=== PATIENT | male | born 1955 | race Caucasian/White ===

== ENCOUNTER 2018-05-28 09:56 | Day surgery (SDC) | payer BC ==
[2018-05-28] MEDS ORDERED: Sodium Chloride 0.9% 10 ML Syringe IV ONE (09:57)
[2018-05-28] MEDS ORDERED: Dexamethasone 4 MG/ML SDV IV ONE (09:57)
[2018-05-28] MEDS ORDERED: Midazolam 1 MG/ML 2 ML SDV IV ONE (09:57)
[2018-05-28] MEDS ORDERED: Proparacaine 0.5% Ophth Soln 15 ML Bottle EYERT ONE (10:00)
[2018-05-28] MEDS ORDERED: Cataract Ophth Solution EYERT ONE (10:00)
[2018-05-28] MEDS ORDERED: Moxifloxacin 0.5% Ophth Soln 3 ML Bottle EYERT ONE (10:00)
[2018-05-28] MEDS ORDERED: Acetaminophen 325 MG Tab PO PRN (10:00)
[2018-05-28] MEDS ORDERED: Ondansetron 4 MG/2 ML SDV IVPUSH PRN (10:00)
[2018-05-28] MEDS ORDERED: Sodium Chloride 0.9% 10 ML Syringe FLUSH PRN (10:00)
[2018-05-28] MEDS ORDERED: Timolol Maleate 0.5% Ophth Soln 5 ML Bottle EYERT ONE (10:00)
[2018-05-28] MEDS ORDERED: Phenylephrine 10% Ophth Soln 5 ML Bot EYERT PRN (10:00)
[2018-05-28] MEDS ORDERED: Povidone-Iodine 5% Sterile Ophth Soln 30 ML Bottle EYERT ONE ×2 (10:00→11:17)
[2018-05-28] MEDS ORDERED: Phenylephrine 10% Ophth Soln 5 ML Bot EYERT ONE (10:00)
[2018-05-28] MEDS ORDERED: Tetracaine HCl/PF 0.5% 4 ML Bottle EYERT ONE (11:17)
[2018-05-28] MEDS ORDERED: Apraclonidine 0.5% Ophth Soln 5 ML Bot EYERT ONE (11:17)
[2018-05-28] MEDS ORDERED: Vancomycin 500 MG SDV EYERT ONE (11:18)
[2018-05-28] MEDS ORDERED: Balanced Salt Solution Ophth Irrig 500 ML Bottle IOCULAR ONE (11:18)
[2018-05-28] MEDS ORDERED: Dexamethasone/Neomycin/Polymyxin B Ophth Oint 3.5 GM Tube EYERT ONE (11:18)
[2018-05-28] MEDS ORDERED: Diclofenac Sodium 0.1% Ophth Soln 5 ML Bottle EYERT ONE (11:18)
[2018-05-28] MEDS ORDERED: Chondroitin Sulfate/Hyaluronate Sodium Ophth Inj 0.75 ML Syringe EYERT ONE (11:19)
[2018-05-28] MEDS ORDERED: Lidocaine 1% 30 ML SDV ONE (11:19)
--- NOTE | 2018-05-28 11:43 | OR ---
DATE: 05/28/2018 PREOPERATIVE DIAGNOSIS: Visually significant mixed cataract, right eye. POSTOPERATIVE DIAGNOSIS: Visually significant mixed cataract, right eye. PROCEDURE: Extracapsular cataract extraction with intraocular lens implant, right eye. ANESTHESIA: Topical/local MAC. COMPLICATIONS: None. INDICATION: Mr. Khan was seen in the clinic. He is unhappy with his vision, noting a slow progressive change. He has difficulty reading, difficulty with bright lights and glare. His examination reveals mixed nuclear and central cortical cataract. I explained options; I offered surgery; and I explained risks including the potential for infection, retinal detachment, loss of vision, and need for additional surgery amongst others. We discussed implant options. He has requested surgery with a toric implant. He understands that he may require glasses for some activities. OPERATIVE DESCRIPTION: After informed consent was obtained and the risks, benefits, and alternatives were explained, the patient was brought to the operative suite and topical anesthesia was administered. The patient was then prepped and draped in the sterile fashion, and attention was placed on the right eye. A sterile lid speculum was placed into the right eye to allow operative exposure. A full-thickness paracentesis was made in the temporal portion of the operative eye. Preservative-free lidocaine 0.1 mL was injected into the anterior chamber followed by viscoelastic. A full-thickness corneal incision was then made into the anterior chamber. A bent needle cystotome was used to create a small kierra in the anterior capsule. The capsulorrhexis forceps was then used to create a 360-degree curvilinear capsulorrhexis. The nucleus was then removed using a phacoemulsification handpiece, and the remaining cortical material was then removed with irrigation and aspiration handpiece. Following removal of the cortical material, the capsular bag was then inspected and noted to be free of any holes or tears. Viscoelastic was then injected into the capsular bag, and the intraocular lens was inserted into the capsular bag. The implant was oriented to correspond with preoperative corneal dominguez made with the patient in the upright position. The viscoelastic material was then removed from both the anterior and posterior chambers and from behind the IOL. The lens and capsular bag were then reinspected. The IOL was well centered and the capsular bag intact. The wound and paracentesis sites were inspected and hydrated with balanced saline solution. Both were found to be self-sealing. The intraocular pressure was assessed digitally and found to be within normal range. A good red reflex was noted at the completion of the procedure. No complications occurred during the operation. At the completion of the procedure, Maxitrol, Voltaren, and Iopidine drops were placed into the operative eye. A sterile eye shield was placed over the operative eye, and the patient was transported to the postoperative recovery area having tolerated the procedure well. Postoperative instructions were given along with a postoperative appointment. The patient was advised to call with any questions or concerns. [facility] /[id number]
== END 2018-05-28 12:30 | disposition home or self-care (01) ==
LOC: DL.SDS 09:56
PROVIDERS: ATTEND Ophthalmology
DX: E11.36 Type 2 diabetes mellitus with diabetic cataract (principal); H25.811 Combined forms of age-related cataract, right eye; E66.01 Morbid (severe) obesity due to excess calories; Z68.42 Body mass index [BMI] 45.0-49.9, adult; E78.5 Hyperlipidemia, unspecified; G47.30 Sleep apnea, unspecified; Z99.89 Dependence on other enabling machines and devices; Z79.82 Long term (current) use of aspirin; Z79.899 Other long term (current) drug therapy
CPT/HCPCS: 66984; A9270; J1100; J2250; J3370; V2787

== ENCOUNTER 2023-04-30 06:27 | Day surgery (SDC) | payer MEDICARE, OTHER ==
[2023-04-30] MEDS ORDERED: Dextrose 5%-0.45% NaCl 1,000 ML IV SCH (06:30)
[2023-04-30] MEDS ORDERED: Midazolam 1 MG/ML 2 ML SDV ONE (07:00)
[2023-04-30] MEDS ORDERED: fentaNYL 100 MCG/2 ML SDV ONE (07:00)
[2023-04-30] MEDS ORDERED: Midazolam 1 MG/ML 2 ML SDV IV ONE ×7 (07:00→07:17)
[2023-04-30] MEDS ORDERED: fentaNYL 100 MCG/2 ML SDV IV ONE ×3 (07:00→07:09)
== END 2023-04-30 09:30 | disposition home or self-care (01) ==
LOC: DL.ENDO 06:27
PROVIDERS: ATTEND Internal Medicine Gastroenterology
DX: Z12.11 Encounter for screening for malignant neoplasm of colon (principal); K51.40 Inflammatory polyps of colon without complications; E11.9 Type 2 diabetes mellitus without complications; E66.9 Obesity, unspecified; Z68.42 Body mass index [BMI] 45.0-49.9, adult
CPT/HCPCS: J2250; J3010; J7042

== ENCOUNTER 2024-02-17 14:34 | Inpatient (IN) | payer MEDICARE, OTHER ==
[2024-02-17 15:27] LABS: BASOPHILS PERCENT AUTO 0.4 % (0.0-1.0); EOSINOPHILS PERCENT AUTO 3.3 % (1.0-3.0); HEMATOCRIT 52.8 % (40.0-54.0); HEMOGLOBIN 15.5 g/dL (14.0-18.0); LYMPHOCYTES PERCENT AUTO 16.4 % (20.5-50.1); MEAN CORPUSCULAR HEMOGLOBIN 28.1 pg (27.0-34.0); MEAN CORPUSCULAR HGB CONC 29.4 g/dL (33.0-35.0); MEAN CORPUSCULAR VOLUME 95.8 fL (80-100); MONOCYTES PERCENT AUTO 7.3 % (2-8); NEUTROPHILS PERCENT AUTO 72.6 % (42.2-75.2); PLATELET COUNT,PLT 247 10^3/uL (150-450); RED BLOOD CELL COUNT 5.51 10^6/uL (4.6-6.2); WHITE BLOOD CELL COUNT,WBC 8.4 10^3/uL (5.0-10.0)
[2024-02-17 15:47] LABS: ALBUMIN 2.9 g/dL (3.4-5.0); ANION GAP 5.1 mEq/L (7-13); BILIRUBIN TOTAL 0.6 mg/dL (0.2-1.0); CALCIUM 8.3 mg/dL (8.5-10.1); CREATININE 0.93 mg/dL (0.70-1.30); EST CRCL DRUG DOSING (CG) 66.13 mL/min; POTASSIUM,K 4.1 mmol/L (3.5-5.1); PROTEIN TOTAL,TP 6.5 g/dL (6.4-8.2)
[2024-02-17 15:48] LABS: A/G RATIO 0.81
[2024-02-17] MEDS: Furosemide 40 MG/4 ML VIAL IVPUSH ONE (16:12)
[2024-02-17] MEDS ORDERED: Acetaminophen 325 MG Tab PO PRN ×2 (21:23→21:34)
[2024-02-17] MEDS ORDERED: Melatonin 3 MG Tab PO PRN (21:34)
[2024-02-17] MEDS ORDERED: Docusate Sodium 100 MG Cap PO PRN (21:34)
[2024-02-17] MEDS ORDERED: Bisacodyl 5 MG Tab PO PRN (21:34)
[2024-02-17] MEDS ORDERED: Ondansetron 4 MG/2 ML SDV IVPUSH PRN (21:34)
[2024-02-17] MEDS ORDERED: Albuterol 0.083% 2.5 MG/3 ML Neb Soln NEB PRN (21:34)
[2024-02-17] MEDS ORDERED: Acetaminophen/HYDROcodone 325-5 MG Tab PO PRN (21:34)
[2024-02-17] MEDS ORDERED: Glucagon,Human Recombinant 1 MG Vial IM PRN (21:42)
[2024-02-17] MEDS ORDERED: 50% Dextrose in Water 50 ML Syringe IVPUSH PRN (21:42)
[2024-02-17] MEDS: Aspirin 81 MG Tab.EC PO SCH (22:14)
[2024-02-17] MEDS: Cyclobenzaprine 10 MG Tab PO PRN (22:14)
[2024-02-17] MEDS: Melatonin 3 MG Tab PO PRN (22:16)
[2024-02-17] MEDS: Simvastatin 40 MG Tab PO SCH (22:51)
[2024-02-17] MEDS: Pantoprazole 40 MG Tab.CR PO ONE (22:51)
[2024-02-17] MEDS: Clopidogrel 75 MG Tab PO ONE (22:51)
[2024-02-17 22:53] LABS: HEMOGLOBIN A1C 8.6 % (<5.7)
[2024-02-17] MEDS: Enoxaparin 60 MG/0.6 ML Syringe SUBCUT ONE (23:13)
[2024-02-18] MEDS: Pantoprazole 40 MG Tab.CR PO SCH (05:02)
[2024-02-18 06:34] LABS: HEMATOCRIT 55.1 % (40.0-54.0); HEMOGLOBIN 15.7 g/dL (14.0-18.0); MEAN CORPUSCULAR HEMOGLOBIN 28.1 pg (27.0-34.0); MEAN CORPUSCULAR HGB CONC 28.5 g/dL (33.0-35.0); MEAN CORPUSCULAR VOLUME 98.6 fL (80-100); RED BLOOD CELL COUNT 5.59 10^6/uL (4.6-6.2); WHITE BLOOD CELL COUNT,WBC 7.5 10^3/uL (5.0-10.0)
[2024-02-18 07:02] LABS: ANION GAP 4.9 mEq/L (7-13); CALCIUM 8.4 mg/dL (8.5-10.1); CREATININE 0.93 mg/dL (0.70-1.30); EST CRCL DRUG DOSING (CG) 66.13 mL/min; POTASSIUM,K 3.9 mmol/L (3.5-5.1)
[2024-02-18] MEDS: Iopamidol 755 Mg/ML 100 ML Bottle IVPUSH ONE (08:34)
[2024-02-18] MEDS ORDERED: Enoxaparin 40 MG/0.4 ML Syringe SUBCUT SCH (09:00)
[2024-02-18 09:01] LABS: O2 DELIVERY DEVICE NASAL CANNULA
[2024-02-18 09:03] LABS: HEMATOCRIT 55.8 % (40.0-54.0); HEMOGLOBIN 15.8 g/dL (14.0-18.0); MEAN CORPUSCULAR HEMOGLOBIN 28.3 pg (27.0-34.0); MEAN CORPUSCULAR HGB CONC 28.3 g/dL (33.0-35.0); RED BLOOD CELL COUNT 5.58 10^6/uL (4.6-6.2); WHITE BLOOD CELL COUNT,WBC 8.2 10^3/uL (5.0-10.0)
[2024-02-18 09:16] LABS: BASE EXCESS VENOUS 7.6 mmol/l ((-2)-(+3)); BICARBONATE,VENOUS 42 mmol/l (19-25); O2 SATURATION VENOUS 64.1 % (60-80); PO2 VENOUS 44 mmHg (35-42)
[2024-02-18 09:17] LABS: PH,VENOUS 7.19 (7.31-7.41)
[2024-02-18 09:18] LABS: PCO2 VENOUS 113 mmHg (41-51)
[2024-02-18 09:27] LABS: ANION GAP 2.6 mEq/L (7-13); CALCIUM 8.4 mg/dL (8.5-10.1); CREATININE 0.88 mg/dL (0.70-1.30); EST CRCL DRUG DOSING (CG) 69.89 mL/min; POTASSIUM,K 4.6 mmol/L (3.5-5.1)
[2024-02-18] MEDS: Enoxaparin 60 MG/0.6 ML Syringe SUBCUT SCH (10:58)
[2024-02-18] MEDS: Furosemide 40 MG/4 ML VIAL IVPUSH SCH (10:58)
[2024-02-18] MEDS: Cyanocobalamin (Vitamin B12) 1,000 MCG Tab PO SCH (10:58)
[2024-02-18] MEDS: Cholecalciferol (Vitamin D3) 25 MCG Tab PO SCH (10:58)
[2024-02-18] MEDS: Clopidogrel 75 MG Tab PO SCH (10:58)
[2024-02-18] MEDS: Multivitamin Tab PO SCH (10:58)
[2024-02-18] MEDS: metFORMIN 500 MG Tab PO SCH (10:59)
[2024-02-18] MEDS: Insulin Lispro 100 Units/ML 3 ML Vial SUBCUT SCH (10:59)
[2024-02-18] MEDS ORDERED: Simvastatin 40 MG Tab PO SCH (21:00)
[2024-02-18] MEDS ORDERED: Tamsulosin 0.4 MG Cap.ER PO SCH (21:00)
== END 2024-02-18 10:45 | DRG 280 ==
LOC: DL.ED 14:34 → DL.MS 18:36 → DL.ED 19:18
PROVIDERS: ADMIT Internal Medicine; ATTEND Internal Medicine
DX: R09.02 Hypoxemia (principal); I50.9 Heart failure, unspecified; J96.02 Acute respiratory failure with hypercapnia; I21.4 Non-ST elevation (NSTEMI) myocardial infarction; Z68.43 Body mass index [BMI] 50.0-59.9, adult; Z90.49 Acquired absence of other specified parts of digestive tract; E66.9 Obesity, unspecified; E11.9 Type 2 diabetes mellitus without complications; E78.00 Pure hypercholesterolemia, unspecified; H54.7 Unspecified visual loss; G47.33 Obstructive sleep apnea (adult) (pediatric); M19.90 Unspecified osteoarthritis, unspecified site; R33.9 Retention of urine, unspecified; Z79.82 Long term (current) use of aspirin; Z98.49 Cataract extraction status, unspecified eye; Z90.89 Acquired absence of other organs; Z98.890 Other specified postprocedural states; Z79.899 Other long term (current) drug therapy; Z79.84 Long term (current) use of oral hypoglycemic drugs
CPT/HCPCS: 36415; 70450; 71045; 71275; 80048; 80053; 80061; 82803; 82947; 83036; 83880; 84484; 85025; 85027; 85379; 93005; 96374; 99285; 99285-25; A9270-GY; J1650; J1940; Q9967